=== PATIENT | female | born 2005 | race Caucasian/White ===

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

== ENCOUNTER 2025-06-08 21:54 | Emergency (ER) | payer OTHER ==
[~2025-06-08] VITALS: Ht 162.6 cm; Wt 85.5 kg
[~2025-06-08 21:54] MED LIST changes: +AMOCLA875 PO
[2025-06-08 22:19] VITALS: BP 116/66
[2025-06-09] MEDS ORDERED: Ampicillin Sod/Sulbactam Sod 3 GM in NS 100 ML IV ONE (00:50)
== END 2025-06-09 01:32 | disposition home or self-care (01) ==
LOC: ER 21:54
DX: K02.9 Dental caries, unspecified (principal); K04.7 Periapical abscess without sinus; J45.909 Unspecified asthma, uncomplicated; F17.200 Nicotine dependence, unspecified, uncomplicated; Z79.52 Long term (current) use of systemic steroids
CPT/HCPCS: 96365; 99282-25; J0295